=== PATIENT | female | born 1940 | race Caucasian/White ===

== ENCOUNTER 2023-02-03 07:08 | Day surgery (SDC) | payer OTHER, MEDICARE ==
[2023-01-29 12:03] VITALS: BMI 27.4
[2023-02-03] MEDS ORDERED: PROPOFOL 160 ML ONE (07:44)
[2023-02-03] MEDS ORDERED: LIDOCAINE HCL/PF 2% SDV 5ML VIAL ONE (08:26)
[2023-02-03 08:57] VITALS: RESP 18; TEMP 97.6
[2023-02-03 09:21] VITALS: BP 121/60; PULSE 69
== END 2023-02-03 09:30 | disposition home or self-care (01) ==
LOC: FASU-ENDO 07:08
PROVIDERS: ATTEND Internal Medicine Gastroenterology
PROC: 0DBN8ZX Excision of Sigmoid Colon, Via Natural or Artificial Opening Endoscopic, Diagnostic (ICD-10-PCS; principal; 2023-02-03 08:24)
DX: Z12.11 Encounter for screening for malignant neoplasm of colon (principal); D17.5 Benign lipomatous neoplasm of intra-abdominal organs; K57.30 Diverticulosis of large intestine without perforation or abscess without bleeding; K64.1 Second degree hemorrhoids; K64.8 Other hemorrhoids
CPT/HCPCS: 88305-TC